=== PATIENT | male | born 1965 | race Hispanic/Latino ===

== ENCOUNTER 2017-05-21 13:14 | Inpatient (IN) | payer SELFPAY ==
[2017-05-21 14:18] LABS: Hematocrit 40.8 % (35.5-45.6); Hemoglobin 14.1 gm/dl (11.8-15.2); Mean Corpuscular HGB Conc 35 % (32-34); Mean Corpuscular Hemoglobin 34 pg (28-32); Mean Corpuscular Volume 97 fl (84-94); Platelet Count 284 K/mm3 (140-440); Red Blood Count 4.19 M/mm3 (3.65-5.03); Red Cell Distribution Width 13.2 % (13.2-15.2)
[2017-05-21 14:19] LABS: Basophils # (Auto) 0.1 K/mm3 (0.0-0.1); Basophils % (Auto) 0.7 % (0.0-1.8); Eosinophils # (Auto) 0.1 K/mm3 (0.0-0.4); Eosinophils % (Auto) 1.3 % (0.0-4.3); Lymphocytes # (Auto) 2.5 K/mm3 (1.2-5.4); Lymphocytes % (Auto) 21.6 % (13.4-35.0); Monocytes # (Auto) 0.8 K/mm3 (0.0-0.8)
[2017-05-21 14:24] LABS: BUN/Creatinine Ratio 13; Blood Urea Nitrogen 12 mg/dL (9-20); Calcium 9.2 mg/dL (8.4-10.2); Hemolysis Index 36
[2017-05-21] MEDS ORDERED: ASPIRIN PO ONE (17:29)
--- NOTE | 2017-05-21 17:29 | Emergency Department Report ---
ED Chest Pain HPI - General Chief Complaint: Chest Pain Stated Complaint: BLOOD PRESSURE /CHEST PAIN Time Seen by Provider: 05/21/17 17:06 Source: patient Mode of arrival: Ambulatory Limitations: No Limitations - History of Present Illness Initial Comments: 52-year-old male with a past medical history hypertension and tobacco use presents complaining of intermittent chest tightness and shortness of breath since yesterday. Symptoms occur with exertion activity and also when he was stressed out by the children running around. Pain was rated as 7/10 in intensity upon arrival but now is currently 4/10. Pain also occurs at rest. He denies nausea, vomiting, or diaphoresis. Patient took 2 Goody powders this a.m. but takes aspirin intermittently. Patient's been noncompliant with his amlodipine 10 mg for several months. He does not have a primary care doctor. Denies family history of CAD. Has not happy with stress testing or cardiac workup in the past. Denies recent travel, calf tenderness, or edema. Severity scale (0 -10): 10 - Related Data Allergies Allergy/AdvReac Type Severity Reaction Status Date / Time No Known Allergies Allergy Unverified 05/21/17 13:18 Heart Score - HEART Score History: Slightly suspicious EKG: Normal Age: 45-65 Risk factors: 1-2 risk factors Troponin: < normal limit HEART Score: 2 ED Review of Systems ROS: Stated complaint: BLOOD PRESSURE /CHEST PAIN Other details as noted in HPI Comment: All other systems reviewed and negative Other: Constitutional: No fevers chills or weight loss Eyes: No eye pain visual changes or discharge ENT: No ear pain or throat pain Neck: Denies pain Respiratory: Denies cough wheezing shortness of breath Cardiovascular: Denies palpitations, syncope GI: Denies abdominal pain, nausea, vomiting, diarrhea : Denies dysuria, urinary frequency, or urgency Musculoskeletal: Denies back pain, joint swelling Skin: Denies rash, lesions, erythema Neurologic: Denies headache, numbness, weakness Psychiatric: Denies suicidal ideation, hallucinations ED Past Medical Hx - Past Medical History Hx Hypertension: Yes - Surgical History Past Surgical History?: No - Social History Smoking Status: Current Every Day Smoker Substance Use Type: None ED Physical Exam - General Limitations: No Limitations - Other Other exam information: General: No limitations, patient is alert in no acute distress Head exam: Atraumatic, normocephalic Eyes exam: Normal appearance ENT: Moist mucous membrane, normal oropharynx Neck exam: Normal inspection, full range of motion, no meningismus nontender Respiratory exam: Clear to auscultation bilateral, no wheezes, rales, crackles Cardiovascular: Normal rate and rhythm, normal heart sounds, chest wall nontender Abdomen: Soft, nondistended, and nontender, with normal bowel sounds, no rebound, or guarding Extremity: Full range of motion normal inspection no deformity, no calf tenderness or edema Back: Normal Inspection, full range of motion, no tenderness Neurologic: Alert, oriented x3, cranial nerves intact, no motor or sensory deficit Psychiatric: normal affect, normal mood Skin: Warm, dry, intact ED Course Vital Signs 05/21/17 05/21/17 13:18 17:17 Temperature 98.2 F 97.8 F Pulse Rate 83 73 Respiratory 16 16 Rate Blood Pressure 127/79 Blood Pressure 133/99 [Left] O2 Sat by Pulse 97 98 Oximetry GLYNN score - Glynn Score Age > 65: (0) No Aspirin use within the Past 7 Days: (0) No 3 or more CAD Risk Factors: (1) Yes 2 or more Angina events in past 24 hrs: (1) Yes Known CAD with more than 50% Stenosis: (0) No Elevated Cardiac Markers: (0) No ST Deviation Greater than 0.5mm: (0) No GLYNN Score: 2 ED Medical Decision Making - Lab Data Result diagrams: 05/21/17 13:29 05/21/17 13:29 Lab Results 05/21/17 05/21/17 05/21/17 Range/Units 13:29 13:29 16:13 WBC 11.7 H (4.5-11.0) K/mm3 RBC 4.19 (3.65-5.03) M/mm3 Hgb 14.1 (11.8-15.2) gm/dl Hct 40.8 (35.5-45.6) % MCV 97 H (84-94) fl MCH 34 H (28-32) pg MCHC 35 H (32-34) % RDW 13.2 (13.2-15.2) % Plt Count 284 (140-440) K/mm3 Lymph % (Auto) 21.6 (13.4-35.0) % [place] % (Auto) 7.0 (0.0-7.3) % Eos % (Auto) 1.3 (0.0-4.3) % Baso % (Auto) 0.7 (0.0-1.8) % Lymph # 2.5 (1.2-5.4) K/mm3 [place] # 0.8 (0.0-0.8) K/mm3 Eos # 0.1 (0.0-0.4) K/mm3 Baso # 0.1 (0.0-0.1) K/mm3 Add Manual Diff Complete Seg Neutrophils % 69.4 (40.0-70.0) % Seg Neutrophils # 8.1 H (1.8-7.7) K/mm3 Sodium 140 (137-145) mmol/L Potassium 3.9 (3.6-5.0) mmol/L Chloride 101.6 (98-107) mmol/L Carbon Dioxide 23 (22-30) mmol/L Anion Gap 19 mmol/L BUN 12 (9-20) mg/dL Creatinine 0.9 (0.8-1.5) mg/dL Estimated GFR > 60 ml/min BUN/Creatinine Ratio 13 % Glucose 63 L (75-100) mg/dL Calcium 9.2 (8.4-10.2) mg/dL Troponin T < 0.010 < 0.010 (0.00-0.029) ng/mL - EKG Data -: EKG Interpreted by Me EKG shows normal: sinus rhythm, axis (75), QRS complexes (99), ST-T waves (no stemi/t inv) Rate: normal (76) - EKG Data When compared to previous EKG there are: previous EKG unavailable - Radiology Data Radiology results: image reviewed (cxr: naf, read by me) - Medical Decision Making Plan to admit medicine for possible further cardiac workup and evaluation. - Differential Diagnosis OK, unstable angina, PE, atypical chest pain, costochondritis Critical Care Time: No Critical care attestation.: If time is entered above; I have spent that time in minutes in the direct care of this critically ill patient, excluding procedure time. ED Disposition Clinical Impression: Chest pain, Smoker, Hx of essential hypertension, Elevated cholesterol Disposition: OP ADMIT IP TO THIS HOSP Is pt being admited?: Yes Does the pt Need Aspirin: Yes Condition: Stable Time of Disposition: 17:29 (Dr Rahman/hosp)
[2017-05-21 17:40] LABS: Chol/HDL Ratio 5.84 %
[2017-05-21] MEDS ORDERED: ASPIRIN ONE (18:03)
--- NOTE | 2017-05-21 18:33 | XRay Report ---
FINAL REPORT PROCEDURE: Chest. TECHNIQUE: PA and lateral views. HISTORY: Chest pain. COMPARISON: No prior studies are available for comparison. FINDINGS: The heart and mediastinum appear normal. There is calcification in the aortic arch. The lungs are clear and well expanded. There are no pleural effusions. The soft tissues and regional skeleton are unremarkable. There is a mild thoracic scoliosis. IMPRESSION: No evidence of acute disease.
[2017-05-21] MEDS ORDERED: TYLENOL PO PRN (19:18)
[2017-05-21] MEDS ORDERED: AMBIEN PO PRN (19:18)
[2017-05-21] MEDS ORDERED: PERCOCET 5/325 PO PRN (19:18)
[2017-05-21] MEDS ORDERED: MILK OF MAGNESIA PO PRN (19:18)
[2017-05-21] MEDS ORDERED: DULCOLAX PR PRN (19:18)
[2017-05-21] MEDS ORDERED: ZOFRAN IV PRN (19:18)
[2017-05-21] MEDS ORDERED: MORPHINE IV PRN (19:18)
[2017-05-21] MEDS ORDERED: NORVASC ONE (19:39)
[2017-05-21] MEDS ORDERED: SODIUM CHLORIDE FLUSH SYRINGE 10 ML IV PRN (19:51)
[2017-05-21] MEDS ORDERED: D5NS 1,000 ML IV SCH (20:00)
--- NOTE | 2017-05-21 20:02 | History and Physical Report ---
History of Present Illness Date of examination: 05/21/17 Date of admission: 05/21/17 17:35 Chief complaint: Chief complaint: Chest pain since yesterday. History of present illness: History of present illness: 52-year-old male with past medical history of hypertension and nicotine dependence comes in for chest pain since yesterday. Pain is intermittent in nature. Dull in character.Intensity is 6/ 10. Nonradiating. Some shortness of breath present. Exacerbated by exertion and relieved by rest . No diaphoresis. No palpitations. No radiation. Did not have any stress test or cardiac workup in the past. Denies recent travel Review of System: Constitutional: no fever, no chills, no weight loss Ears, eyes, nose, mouth and throat: no nasal congestion, no nasal discharge, no sinus pressure, no vision change, no red eye. Neck: No neck pain or rigidity. Cardiovascular: chest pain, no orthopnea, no palpitations, no leg swelling Respiratory: No shortness of breath, no cough, no congestion, no wheezing Gastrointestinal: no abdominal pain, no nausea, no vomiting Genitourinary : no dysuria, no hematuria Musculoskeletal: no joint swelling or muscle ache Integumentary: no rash, no pruritis Neurological: no parathesias, no numbness, no tingling Endocrine: no cold or heat intolerance, no polyuria or polydipsia Hematologic/Lymphatic: no easy bruising, no easy bleeding, no gland swelling Allergic/Immunologic: no urticaria, no angioedema. Past History Past Medical History: hypertension Past Surgical History: No surgical history Social history: lives with family, smoking ( 1 pack a day), full code Family history: hypertension Medications and Allergies Allergies Allergy/AdvReac Type Severity Reaction Status Date / Time No Known Allergies Allergy Verified 05/21/17 19:01 Home Medications Medication Instructions Recorded Confirmed Last Taken Type amLODIPine [Norvasc] 10 mg PO DAILY 05/21/17 05/21/17 Unknown History Active Meds: Active Medications Acetaminophen (Tylenol) 650 mg PO Q4H PRN PRN Reason: Pain MILD(1-3)/Fever >100.5/FIGUEROA Amlodipine Besylate (Norvasc) 10 mg PO DAILY CHIQUITA Bisacodyl (Dulcolax) 10 mg MT QDAY PRN PRN Reason: Constipation unrelieved by MOM Famotidine (Pepcid) 20 mg PO BID CHIQUITA Dextrose/Sodium Chloride (D5ns) 1,000 mls @ 100 mls/hr IV DIRECT CHIQUITA Magnesium Hydroxide (Milk Of Magnesia) 30 ml PO Q4H PRN PRN Reason: Constipation Morphine Sulfate (Morphine) 4 mg IV Q4H PRN PRN Reason: Pain , Severe (7-10) Ondansetron HCl (Zofran) 4 mg IV Q8H PRN PRN Reason: N/V unrelieved by Reglan Oxycodone/Acetaminophen (Percocet 5/325) 1 tab PO Q6H PRN PRN Reason: Pain, Moderate (4-6) Sodium Chloride (Sodium Chloride Flush Syringe 10 Ml) 10 ml IV PRN PRN PRN Reason: LINE FLUSH Zolpidem Tartrate (Ambien) 5 mg PO QHS PRN PRN Reason: Insomnia Exam - Constitutional Vitals: Temp Pulse Resp BP Pulse Ox 97.8 F 73 16 133/99 98 05/21/17 17:17 05/21/17 17:17 05/21/17 17:17 05/21/17 17:17 05/21/17 17:17 General appearance: Present: no acute distress, well-nourished - EENT Eyes: Present: PERRL ENT: hearing intact, clear oral mucosa - Neck Neck: Present: supple, normal ROM - Respiratory Respiratory effort: normal Respiratory: bilateral: CTA - Cardiovascular Heart rate: 75 Rhythm: regular (76) Heart Sounds: Present: S1 & S2. Absent: rub, click - Extremities Extremities: pulses symmetrical, No edema Peripheral Pulses: within normal limits - Abdominal General gastrointestinal: Present: soft, non-tender, non-distended, normal bowel sounds Male genitourinary: Present: normal - Integumentary Integumentary: Present: clear, warm, dry - Musculoskeletal Musculoskeletal: gait normal, strength equal bilaterally - Psychiatric Psychiatric: appropriate mood/affect, intact judgment & insight - Neurologic Neurologic: CNII-XII intact, moves all extremities - Allied Health Allied health notes reviewed: nursing, case management Results - Labs CBC & Chem 7: 05/21/17 13:29 05/21/17 13:29 Labs: Laboratory Last Values WBC 11.7 K/mm3 (4.5-11.0) H 05/21/17 13:29 RBC 4.19 M/mm3 (3.65-5.03) 05/21/17 13:29 Hgb 14.1 gm/dl (11.8-15.2) 05/21/17 13:29 Hct 40.8 % (35.5-45.6) 05/21/17 13:29 MCV 97 fl (84-94) H 05/21/17 13:29 MCH 34 pg (28-32) H 05/21/17 13:29 MCHC 35 % (32-34) H 05/21/17 13:29 RDW 13.2 % (13.2-15.2) 05/21/17 13:29 Plt Count 284 K/mm3 (140-440) 05/21/17 13:29 Lymph % (Auto) 21.6 % (13.4-35.0) 05/21/17 13:29 [place] % (Auto) 7.0 % (0.0-7.3) 05/21/17 13:29 Eos % (Auto) 1.3 % (0.0-4.3) 05/21/17 13:29 Baso % (Auto) 0.7 % (0.0-1.8) 05/21/17 13:29 Lymph # 2.5 K/mm3 (1.2-5.4) 05/21/17 13:29 [place] # 0.8 K/mm3 (0.0-0.8) 05/21/17 13:29 Eos # 0.1 K/mm3 (0.0-0.4) 05/21/17 13:29 Baso # 0.1 K/mm3 (0.0-0.1) 05/21/17 13:29 Add Manual Diff Complete 05/21/17 13:29 Seg Neutrophils % 69.4 % (40.0-70.0) 05/21/17 13:29 Seg Neutrophils # 8.1 K/mm3 (1.8-7.7) H 05/21/17 13:29 Sodium 140 mmol/L (137-145) 05/21/17 13:29 Potassium 3.9 mmol/L (3.6-5.0) 05/21/17 13:29 Chloride 101.6 mmol/L (98-107) 05/21/17 13:29 Carbon Dioxide 23 mmol/L (22-30) 05/21/17 13:29 Anion Gap 19 mmol/L 05/21/17 13:29 BUN 12 mg/dL (9-20) 05/21/17 13:29 Creatinine 0.9 mg/dL (0.8-1.5) 05/21/17 13:29 Estimated GFR > 60 ml/min 05/21/17 13:29 BUN/Creatinine Ratio 13 % 05/21/17 13:29 Glucose 63 mg/dL (75-100) L 05/21/17 13:29 Calcium 9.2 mg/dL (8.4-10.2) 05/21/17 13:29 Troponin T < 0.010 ng/mL (0.00-0.029) 05/21/17 16:13 Cholesterol 228 mg/dL (50-199) H 05/21/17 16:13 LDL Cholesterol Direct 164 mg/dL (50-130) H 05/21/17 16:13 HDL Cholesterol 39 mg/dL (40-59) L 05/21/17 16:13 Cholesterol/HDL Ratio 5.84 % 05/21/17 16:13 Short CBC 05/21/17 Range/Units 13:29 WBC 11.7 H (4.5-11.0) K/mm3 Hgb 14.1 (11.8-15.2) gm/dl Hct 40.8 (35.5-45.6) % Plt Count 284 (140-440) K/mm3 BMP 05/21/17 13:29 Sodium 140 Potassium 3.9 Chloride 101.6 Carbon Dioxide 23 BUN 12 Creatinine 0.9 Glucose 63 L Calcium 9.2 Cardiac Enzymes 05/21/17 05/21/17 Range/Units 13:29 16:13 Troponin T < 0.010 < 0.010 (0.00-0.029) ng/mL - Imaging and Cardiology EKG: report reviewed (normal sinus rhythm heart rate of 75/m no ST-T wave changes EKG reviewed by me.) Chest x-ray: report reviewed (no acute findings) Assessment and Plan Advance Directives: Yes (full code) VTE prophylaxis?: Chemical Plan of care discussed with patient/family: Yes - Patient Problems (1) Chest pain Current Visit: Yes Status: Acute Qualifiers: Chest pain type: unspecified Qualified Code(s): R07.9 - Chest pain, unspecified Plan to address problem: Chest pain workup.Serial cardiac enzymes and Lexiscan in a.m.differential diagnosis of costochondritis and reflux esophagitis to be considered. No chest wall tenderness. (2) Hypertension Current Visit: Yes Status: Chronic Qualifiers: Hypertension type: essential hypertension Qualified Code(s): I10 - Essential (primary) hypertension Plan to address problem: continue Amlodipine 10 mg once a day.blood pressure reasonably well controlled. No need for new blood pressure medications. (3) Nicotine dependence Current Visit: Yes Status: Chronic Qualifiers: Substance use status: uncomplicated Plan to address problem: NicoDerm patch added
[2017-05-21 20:31] LABS: Basophils # (Auto) 0.1 K/mm3 (0.0-0.1); Basophils % (Auto) 1.2 % (0.0-1.8); Eosinophils # (Auto) 0.4 K/mm3 (0.0-0.4); Eosinophils % (Auto) 3.9 % (0.0-4.3); Hematocrit 41.9 % (35.5-45.6); Hemoglobin 14.3 gm/dl (11.8-15.2); Lymphocytes # (Auto) 4.2 K/mm3 (1.2-5.4); Lymphocytes % (Auto) 39.1 % (13.4-35.0); Mean Corpuscular HGB Conc 34 % (32-34); Mean Corpuscular Hemoglobin 33 pg (28-32); Mean Corpuscular Volume 98 fl (84-94); Monocytes # (Auto) 0.6 K/mm3 (0.0-0.8); Platelet Count 306 K/mm3 (140-440); Red Blood Count 4.29 M/mm3 (3.65-5.03); Red Cell Distribution Width 13.4 % (13.2-15.2)
[2017-05-21 20:35] LABS: Creatine Kinase MB 1.9 ng/mL (0.0-4.0)
[2017-05-21 20:47] LABS: BUN/Creatinine Ratio 13; Blood Urea Nitrogen 12 mg/dL (9-20); Calcium 9.4 mg/dL (8.4-10.2); Hemolysis Index 28
[2017-05-21] MEDS: NORVASC PO SCH (20:50)
[2017-05-21] MEDS ORDERED: HABITROL TD SCH (21:00)
[2017-05-21] MEDS: PEPCID PO SCH (22:26)
[2017-05-22 05:07] VITALS: BP 110/69
[2017-05-22 06:18] LABS: Basophils # (Auto) 0.1 K/mm3 (0.0-0.1); Basophils % (Auto) 0.9 % (0.0-1.8); Eosinophils # (Auto) 0.3 K/mm3 (0.0-0.4); Eosinophils % (Auto) 3.7 % (0.0-4.3); Hematocrit 39.4 % (35.5-45.6); Hemoglobin 13.5 gm/dl (11.8-15.2); Lymphocytes # (Auto) 2.5 K/mm3 (1.2-5.4); Lymphocytes % (Auto) 27.8 % (13.4-35.0); Mean Corpuscular HGB Conc 34 % (32-34); Mean Corpuscular Hemoglobin 33 pg (28-32); Mean Corpuscular Volume 97 fl (84-94); Monocytes # (Auto) 0.7 K/mm3 (0.0-0.8); Monocytes % (Auto) 8.1 % (0.0-7.3); Platelet Count 261 K/mm3 (140-440); Red Blood Count 4.05 M/mm3 (3.65-5.03)
[2017-05-22 06:20] LABS: Creatine Kinase MB 1.6 ng/mL (0.0-4.0)
[2017-05-22 06:23] LABS: Alanine Aminotransferase 19 units/L (7-56); Albumin 3.7 g/dL (3.9-5); BUN/Creatinine Ratio 14; Blood Urea Nitrogen 11 mg/dL (9-20); Calcium 8.7 mg/dL (8.4-10.2); Hemolysis Index 11
[2017-05-22] MEDS ORDERED: LEXISCAN IV ONE ×2 (08:11→08:27)
[2017-05-22 08:38] LABS: Creatine Kinase MB 1.4 ng/mL (0.0-4.0)
--- NOTE | 2017-05-22 12:47 | Discharge Summary ---
Providers - Providers Date of Admission: 05/21/17 17:35 Attending physician: VERONICA TANG MD 05/21/17 Consult to Cardiac Rehabilitation [CONS] Routine Reason For Exam: Phase I Primary care physician: 3D ARTIST Hospitalization Condition: Stable Hospital course: 52-year-old man with a history of hypertension and nicotine dependence who presented with chest pain. He was admitted to the hospital for workup of chest pain. ACS was ruled out by negative troponins. He went on to have a stress test Stress test results showed no ischemia . He was counseled about tobacco cessation and given nicotine patches. And his blood pressure medications from home and continued. Patient improved and was subsequently discharged. Discharge diagnoses Chest pain due to costochondritis Hypertension Nicotine abuse Disposition: DC-01 TO HOME OR SELFCARE Time spent for discharge: 44 minutes Core Measure Documentation - Palliative Care Palliative Care/ Comfort Measures: Not Applicable - Core Measures Any of the following diagnoses?: none Exam - Constitutional Vitals: Temp Pulse Resp BP Pulse Ox 98.1 F 68 18 110/69 95 05/22/17 04:21 05/22/17 06:39 05/22/17 04:21 05/22/17 04:21 05/22/17 04:21 General appearance: Present: no acute distress, well-nourished - EENT Eyes: Present: PERRL ENT: hearing intact, clear oral mucosa - Neck Neck: Present: supple, normal ROM - Respiratory Respiratory effort: normal Respiratory: bilateral: CTA - Cardiovascular Heart Sounds: Present: S1 & S2. Absent: rub, click - Extremities Extremities: pulses symmetrical, No edema Peripheral Pulses: within normal limits - Abdominal General gastrointestinal: Present: soft, non-tender, non-distended, normal bowel sounds Male genitourinary: Present: normal - Integumentary Integumentary: Present: clear, warm, dry - Musculoskeletal Musculoskeletal: gait normal, strength equal bilaterally - Psychiatric Psychiatric: appropriate mood/affect, intact judgment & insight - Neurologic Neurologic: CNII-XII intact, moves all extremities Plan Follow up with: [facility] [Provider Group] - 7 Days PRIMARY CARE, [Primary Care Provider] - 3-5 Days Prescriptions: Pravastatin [Pravachol] 40 mg PO QHS #30 tablet amLODIPine [Norvasc] 10 mg PO DAILY #30 tablet amLODIPine [Norvasc] 10 mg PO DAILY #90 tab Nicotine [Habitrol] 21 mg TD Q24H #30 patch
[2017-05-22] MEDS: NORVASC PO SCH (14:06)
[2017-05-22] MEDS: PEPCID PO SCH (14:06)
--- NOTE | 2017-05-23 12:24 | Treadmill Report ---
NUCLEAR STRESS TEST REPORT The patient is brought to the Cardiology lab and exercised with Star protocol. He tolerated the procedure well. Post-stress images reveal fairly homogeneous distribution of the isotope. However, small inferoseptal mostly fixed defect with minimal reversibility is noted. This could very well be artifactual. Accompanying gated study shows no wall motion abnormalities, good systolic function is noted with a calculated ejection fraction of 70%. IMPRESSION: 1. Nuclear stress test reveals excellent systolic function with no wall motion abnormalities. Calculated ejection fraction is noted to be 70%. 2. Small inferior defect with minimal reversibility, probably artifactual though a small amount of ischemia cannot be excluded. 3. Suggest clinical correlation. JOB# [id number] LAVERN/ZELALEM SARAH
== END 2017-05-22 15:48 | disposition home or self-care (01) | DRG 206 ==
LOC: ED 13:14 → 4A 17:35
PROVIDERS: ADMIT Internal Medicine; ATTEND Internal Medicine
DX: M94.0 Chondrocostal junction syndrome [Tietze] (principal); F17.200 Nicotine dependence, unspecified, uncomplicated; Z86.79 Personal history of other diseases of the circulatory system; I10 Essential (primary) hypertension; Z71.6 Tobacco abuse counseling; Z82.49 Family history of ischemic heart disease and other diseases of the circulatory system; Z79.899 Other long term (current) drug therapy
CPT/HCPCS: 36415; 71020; 78452; 80048; 80053; 80061; 82550; 82553; 83036; 84484; 85025; 93005; 93010; 93017; A9502; J2785